=== PATIENT | female | born 1995 | race American Indian/Alaskan Native ===

== ENCOUNTER 2018-08-01 17:27 | Emergency (ER) | payer BC, OTHER ==
--- NOTE | 2018-08-01 18:54 | Emergency Department Report ---
Blank Doc - Documentation Documentation: 22 y o female presents to ED with right ankle pain pain x 1 month. cc of right Achilles tendon pain and swelling no numbness or tingling, weakness, or recent injury Exam: swelling and tenderness to achilles tendon area, limited ROM 2/2 pain PlaN: XR fast track eval
--- NOTE | 2018-08-01 20:01 | XRay Report ---
FINAL REPORT EXAM: XR ANKLE 2V RT HISTORY: posterior ankle swelling and pain TECHNIQUE: 2 views right ankle PRIORS: None. FINDINGS: No fracture is identified. No dislocation seen. Ankle mortise is intact no evidence of joint space w idening. No erosive or degenerative changes are identified. No evidence of joint effusion. IMPRESSION: Negative ankle series
--- NOTE | 2018-08-01 23:04 | Emergency Department Report ---
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 denies: numbness - Related Data Previous Rx's Medication Instructions Recorded Last Taken Type Doxylamine Succinate/Vit B6 2 each PO DAILY #30 tablet. 04/29/16 Unknown Rx [Chilo Ervin 10-10 mg Tablet] Cyclobenzaprine [Flexeril] 10 mg PO BID PRN #20 tablet 08/01/18 Unknown Rx Naproxen 500 mg PO BID PRN #30 tablet 08/01/18 Unknown Rx Allergies Allergy/AdvReac Type Severity Reaction Status Date / Time No Known Allergies Allergy Verified 08/01/18 18:49 ED Review of Systems ROS: Stated complaint: RT ANKLE PAIN Other details as noted in HPI Constitutional: denies: chills, fever Eyes: denies: eye pain, eye discharge, vision change ENT: denies: ear pain, throat pain Respiratory: denies: cough, shortness of breath, wheezing Cardiovascular: denies: chest pain, palpitations Endocrine: no symptoms reported Gastrointestinal: denies: abdominal pain, nausea, diarrhea Genitourinary: denies: urgency, dysuria, discharge Musculoskeletal: joint swelling, arthralgia, other (ankle pain swelling ) Skin: denies: rash, lesions Neurological: denies: headache, weakness, paresthesias Psychiatric: denies: anxiety, depression Hematological/Lymphatic: denies: easy bleeding, easy bruising ED Past Medical Hx - Past Medical History Hx Asthma: Yes - Surgical History Past Surgical History?: No - Social History Smoking Status: Never Smoker Substance Use Type: Alcohol - Medications Home Medications: Home Medications Medication Instructions Recorded Confirmed Last Taken Type Doxylamine Succinate/Vit B6 2 each PO DAILY #30 tablet. 04/29/16 Unknown Rx [Chilo Dr 10-10 mg Tablet] Cyclobenzaprine [Flexeril] 10 mg PO BID PRN #20 tablet 08/01/18 Unknown Rx Naproxen 500 mg PO BID PRN #30 tablet 08/01/18 Unknown Rx ED Physical Exam - General Limitations: No Limitations General appearance: alert, in no apparent distress - Head Head exam: Present: atraumatic, normocephalic - Eye Eye exam: Present: normal appearance - ENT ENT exam: Present: mucous membranes moist - Neck Neck exam: Present: normal inspection - Respiratory Respiratory exam: Present: normal lung sounds bilaterally. Absent: respiratory distress, wheezes - Cardiovascular Cardiovascular Exam: Present: regular rate, normal rhythm, normal heart sounds. Absent: systolic murmur, diastolic murmur, rubs, gallop - GI/Abdominal GI/Abdominal exam: Present: soft, normal bowel sounds - Rectal Rectal exam: Present: deferred - Extremities Exam Extremities exam: Present: normal inspection, tenderness, normal capillary refill, joint swelling (right ankle ). Absent: calf tenderness - Expanded Lower Extremity Exam Right Ankle exam: Present: full ROM, tenderness, swelling. Absent: abrasion, laceration, ecchymosis, deformity, crepidus, dislocation, erythema, anterior draw sign Foot/Toe exam: Present: normal inspection, full ROM. Absent: tenderness Neuro vascular tendon exam: Present: no vascular compromise. Absent: motor deficit, sensory deficit, tendon deficit Gait: Positive: observed and limited by pain - Back Exam Back exam: Present: normal inspection, full ROM. Absent: tenderness, CVA tenderness (R), CVA tenderness (L), muscle spasm, paraspinal tenderness - Neurological Exam Neurological exam: Present: alert, oriented X3, CN II-XII intact, normal gait, motor sensory deficit, reflexes normal - Psychiatric Psychiatric exam: Present: normal affect, normal mood - Skin Skin exam: Present: warm, dry, intact, normal color. Absent: rash ED Course Vital Signs 08/01/18 17:39 Temperature 98.7 F Pulse Rate 79 Respiratory 16 Rate Blood Pressure 126/79 [Left] O2 Sat by Pulse 100 Oximetry ED Lower Extremity MDM - EKG Data Interpretation: unchanged when compared t (final with her vomiting rate is regular) - Radiology Data Radiology results: report reviewed, image reviewed FINAL REPORT EXAM: XR ANKLE 2V RT HISTORY: posterior ankle swelling and pain TECHNIQUE: 2 views right ankle PRIORS: None. FINDINGS: No fracture is identified. No dislocation seen. Ankle mortise is intact no evidence of joint space widening. No erosive or degenerative changes are identified. No evidence of joint effusion. IMPRESSION: Negative ankle series Transcribed By: TAMANNA Dictated By: KRYSTYNA VARELA MD Electronically Authenticated By: KRYSTYNA VARELA MD Signed Date/Time: 08/01/182000 DD/ 58 TD/TT: 08/01/181958 - Medical Decision Making this is ankle pain and swelling no fracture on xray no soft tissue abnormality pain with rotation pt is partial weight bearing there has been no significant injury plan: crutches continue current low wrap therapy, follow up with orthopedics in 2-3 days. pt verbalized agreement and understanding of same. Critical care attestation.: If time is entered above; I have spent that time in minutes in the direct care of this critically ill patient, excluding procedure time. ED Disposition Clinical Impression: Ankle sprain Qualifiers: Encounter type: initial encounter Involved ligament of ankle: unspecified ligament Laterality: right Qualified Code(s): S93.401A - Sprain of unspecified ligament of right ankle, initial encounter Ankle pain Qualifiers: Chronicity: acute Laterality: right Qualified Code(s): M25.571 - Pain in right ankle and joints of right foot Disposition: TO HOME OR SELFCARE Is pt being admited?: No Does the pt Need Aspirin: No Condition: Stable Prescriptions: Cyclobenzaprine [Flexeril] 10 mg PO BID PRN #20 tablet PRN Reason: Muscle Spasm Naproxen 500 mg PO BID PRN #30 tablet PRN Reason: pain Referrals: KRISTI DAMIAN MD [Staff Physician] - 3-5 Days Forms: Work/School Release Form(ED) Time of Disposition: 23:15
[2018-08-01 23:45] VITALS: BP 115/82
== END 2018-08-01 23:44 | disposition home or self-care (01) ==
LOC: ED 17:27
DX: S93.401A Sprain of unspecified ligament of right ankle, initial encounter (principal); J45.909 Unspecified asthma, uncomplicated; X50.1XXA Overexertion from prolonged static or awkward postures, initial encounter; Y93.89 Activity, other specified; Y92.69 Other specified industrial and construction area as the place of occurrence of the external cause; Y99.8 Other external cause status
CPT/HCPCS: 99283

== ENCOUNTER 2019-03-10 16:48 | Emergency (ER) | payer BC, OTHER ==
[2019-03-10 17:54] VITALS: BP 136/68
--- NOTE | 2019-03-10 17:56 | Event Note ---
ED Screening Note Date of service: 03/10/19 Time: 17:51 ED Screening Note: This is a 23 y.o. F. that presents to the ER with nausea, vomiting, and diarrhea. Patient states she took 2 test, 1 positive and 1 negative. This initial assessment/diagnostic orders/clinical plan/treatment(s) is/are subject to change based on patients health status, clinical progression and re- assessment by fellow clinical providers in the ED. Further treatment and workup at subsequent clinical providers discretion. Patient/guardian urged not to elope from the ED as their condition may be serious if not clinically assessed and managed. Initial orders include: UA and hcg
[2019-03-10 18:38] LABS: Bilirubin,Urine NEG (Negative); Blood,Urine NEG (Negative); Color,Urine Yellow (Yellow); Mucus,Urine 3+ /HPF; Protein,Urine <15 mg/dL mg/dL (Negative); Urobilinogen,Urine < 2.0 mg/dL (<2.0)
[2019-03-10 18:41] LABS: HCG Qualitative,Urine Negative (Negative)
--- NOTE | 2019-03-10 21:04 | Emergency Department Report ---
ED General Adult HPI - General Chief complaint: Nausea/Vomiting/Diarrhea Stated complaint: ABD PAIN/NAUSEA Time Seen by Provider: 03/10/19 17:51 Source: patient Mode of arrival: Ambulatory Limitations: No Limitations - History of Present Illness Initial comments: 23-year-old obese [place] female with a On control in her arm presents with department seeking a test to ensure that she is not . States took a home test and it was negative and also she took one that had a what she feels is a faint line so following the family. She did a repeat test also was negative. States for to confirm she wanted to come to the ED to make sure test was negative. She reports no nausea, vomiting, no fevers or chills. Radiation: non-radiation Improves with: none Worsens with: none Associated Symptoms: denies other symptoms Treatments Prior to Arrival: none - Related Data Previous Rx's Medication Instructions Recorded Last Taken Type Doxylamine Succinate/Vit B6 2 each PO DAILY #30 tablet. 04/29/16 Unknown Rx [Chilo Ervin 10-10 mg Tablet] Cyclobenzaprine [Flexeril] 10 mg PO BID PRN #20 tablet 08/01/18 Unknown Rx Naproxen 500 mg PO BID PRN #30 tablet 08/01/18 Unknown Rx Allergies Allergy/AdvReac Type Severity Reaction Status Date / Time No Known Allergies Allergy Verified 03/10/19 17:50 ED Review of Systems ROS: Stated complaint: ABD PAIN/NAUSEA Other details as noted in HPI Comment: All other systems reviewed and negative ED Past Medical Hx - Past Medical History Hx Asthma: Yes - Surgical History Additional Surgical History: x1 - Social History Smoking Status: Current Every Day Smoker Substance Use Type: Alcohol - Medications Home Medications: Home Medications Medication Instructions Recorded Confirmed Last Taken Type Doxylamine Succinate/Vit B6 2 each PO DAILY #30 tablet. 04/29/16 Unknown Rx [Chilo Ervin 10-10 mg Tablet] Cyclobenzaprine [Flexeril] 10 mg PO BID PRN #20 tablet 08/01/18 Unknown Rx Naproxen 500 mg PO BID PRN #30 tablet 08/01/18 Unknown Rx ED Physical Exam - General Limitations: No Limitations General appearance: alert, in no apparent distress - Head Head exam: Present: atraumatic, normocephalic - Eye Eye exam: Present: normal appearance - ENT ENT exam: Present: mucous membranes moist - Neck Neck exam: Present: normal inspection - Respiratory Respiratory exam: Present: normal lung sounds bilaterally. Absent: respiratory distress - Cardiovascular Cardiovascular Exam: Present: regular rate, normal rhythm. Absent: systolic murmur, diastolic murmur, rubs, gallop - GI/Abdominal GI/Abdominal exam: Present: soft, normal bowel sounds - Extremities Exam Extremities exam: Present: normal inspection - Back Exam Back exam: Present: normal inspection - Neurological Exam Neurological exam: Present: alert, oriented X3 - Psychiatric Psychiatric exam: Present: normal affect, normal mood - Skin Skin exam: Present: warm, dry, intact, normal color. Absent: rash ED Course Vital Signs 03/10/19 17:51 Temperature 98.9 F Pulse Rate 84 Respiratory 16 Rate Blood Pressure 136/68 O2 Sat by Pulse 98 Oximetry Critical care attestation.: If time is entered above; I have spent that time in minutes in the direct care of this critically ill patient, excluding procedure time. ED Disposition Clinical Impression: Negative test Disposition: - TO HOME OR SELFCARE Is pt being admited?: No Does the pt Need Aspirin: No Condition: Stable Instructions: Normal Exam (ED) Referrals: CARLOS RENAE MD [Primary Care Provider] - 3-5 Days
== END 2019-03-10 21:03 | disposition home or self-care (01) ==
LOC: ED 16:48
DX: R55 Syncope and collapse (principal); J45.909 Unspecified asthma, uncomplicated; F17.200 Nicotine dependence, unspecified, uncomplicated
CPT/HCPCS: 81001; 81025

== ENCOUNTER 2019-05-05 21:58 | Emergency (ER) | payer BC, OTHER ==
[2019-05-05 22:43] LABS: Basophils # (Auto) 0.1 K/mm3 (0.0-0.1); Basophils % (Auto) 1.2 % (0.0-1.8); Eosinophils # (Auto) 0.5 K/mm3 (0.0-0.4); Eosinophils % (Auto) 4.7 % (0.0-4.3); Hematocrit 39.4 % (30.3-42.9); Hemoglobin 13.9 gm/dl (10.1-14.3); Lymphocytes # (Auto) 2.6 K/mm3 (1.2-5.4); Lymphocytes % (Auto) 25.8 % (13.4-35.0); Mean Corpuscular HGB Conc 35 % (30-34); Mean Corpuscular Volume 86 fl (79-97); Monocytes # (Auto) 0.7 K/mm3 (0.0-0.8); Monocytes % (Auto) 7.3 % (0.0-7.3); Platelet Count 349 K/mm3 (140-440); Red Blood Count 4.59 M/mm3 (3.65-5.03); Red Cell Distribution Width 13.4 % (13.2-15.2)
[2019-05-05 23:05] LABS: Alanine Aminotransferase 11 units/L (7-56); Albumin 4.4 g/dL (3.9-5); BUN/Creatinine Ratio 18; Blood Urea Nitrogen 11 mg/dL (7-17); Calcium 9.2 mg/dL (8.4-10.2); Hemolysis Index 12
[2019-05-05 23:19] LABS: Amorphous Crystals,Urine Few; Bilirubin,Urine NEG (Negative); Blood,Urine NEG (Negative); Color,Urine Yellow (Yellow); Mucus,Urine 3+ /HPF
--- NOTE | 2019-05-05 23:58 | Emergency Department Report ---
ED Abdominal Pain HPI - General Chief Complaint: Abdominal Pain Stated Complaint: ABD PAIN POSSIBLY Time Seen by Provider: 05/05/19 23:01 Source: patient Mode of arrival: Ambulatory Limitations: No Limitations - History of Present Illness Initial Comments: Pt is a 23 y/o aaf who presents for bilat lowe abdominal pain radiating to superpubic x 1 weeks, states she took home test with faint positive result. pt denies vaginal bleeding no vaginal discharge, denies dysuria, frequency, or urgency. there is no n/v no back pain no n/v pt states hemturia x 1 today. MD Complaint: abdominal pain Onset/Timin -: week(s) Location: suprapubic Radiation: suprapubic Migration to: no migration Severity: moderate Severity scale (0 -10): 5 Quality: aching Consistency: constant Improves With: nothing Worsens With: nothing Associated Symptoms: denies: nausea, vomiting, diarrhea, fever, chills, constipation, dysuria - Related Data LMP Date: 04/04/19 Previous Rx's Medication Instructions Recorded Last Taken Type Doxylamine Succinate/Vit B6 2 each PO DAILY #30 tablet. 04/29/16 Unknown Rx [Diclegis Dr 10-10 mg Tablet] Cyclobenzaprine [Flexeril] 10 mg PO BID PRN #20 tablet 08/01/18 Unknown Rx Naproxen 500 mg PO BID PRN #30 tablet 08/01/18 Unknown Rx Ibuprofen [Motrin 800 MG tab] 800 mg PO Q8HR PRN #30 tablet 05/06/19 Unknown Rx Nitrofurantoin Ellis/M-Cryst 100 mg PO BID 7 Days #14 capsule 05/06/19 Unknown Rx [Macrobid CAP] Allergies Allergy/AdvReac Type Severity Reaction Status Date / Time No Known Allergies Allergy Verified 03/10/19 17:50 ED Review of Systems ROS: Stated complaint: ABD PAIN POSSIBLY Other details as noted in HPI Constitutional: denies: chills, fever Eyes: denies: eye pain, eye discharge, vision change ENT: denies: ear pain, throat pain Respiratory: denies: cough, shortness of breath, wheezing Cardiovascular: denies: chest pain, palpitations Endocrine: no symptoms reported Gastrointestinal: abdominal pain. denies: nausea, vomiting, diarrhea Genitourinary: hematuria. denies: urgency, dysuria, frequency, discharge, dyspareunia Musculoskeletal: denies: back pain, joint swelling, arthralgia Skin: denies: rash, lesions Neurological: denies: headache, weakness, paresthesias Psychiatric: as per HPI Hematological/Lymphatic: denies: easy bleeding, easy bruising ED Past Medical Hx - Past Medical History Previous Medical History?: Yes Hx Asthma: Yes Additional medical history: eczema - Surgical History Past Surgical History?: Yes Additional Surgical History: x1 - Social History Smoking Status: Former Smoker Substance Use Type: Alcohol - Medications Home Medications: Home Medications Medication Instructions Recorded Confirmed Last Taken Type Doxylamine Succinate/Vit B6 2 each PO DAILY #30 tablet. 04/29/16 Unknown Rx [Diclegis Dr 10-10 mg Tablet] Cyclobenzaprine [Flexeril] 10 mg PO BID PRN #20 tablet 08/01/18 Unknown Rx Naproxen 500 mg PO BID PRN #30 tablet 08/01/18 Unknown Rx Ibuprofen [Motrin 800 MG tab] 800 mg PO Q8HR PRN #30 tablet 05/06/19 Unknown Rx Nitrofurantoin Ellis/M-Cryst 100 mg PO BID 7 Days #14 capsule 05/06/19 Unknown Rx [Macrobid CAP] ED Physical Exam - General Limitations: No Limitations General appearance: alert, in no apparent distress - Head Head exam: Present: atraumatic, normocephalic - Eye Eye exam: Present: normal appearance - ENT ENT exam: Present: mucous membranes moist - Neck Neck exam: Present: normal inspection - Respiratory Respiratory exam: Present: normal lung sounds bilaterally. Absent: respiratory distress - Cardiovascular Cardiovascular Exam: Present: regular rate, normal rhythm. Absent: systolic murmur, diastolic murmur, rubs, gallop - GI/Abdominal GI/Abdominal exam: Present: soft, normal bowel sounds. Absent: distended, tenderness, guarding, rebound, rigid, bruit, hernia - Rectal Rectal exam: Present: deferred - Extremities Exam Extremities exam: Present: normal inspection, full ROM. Absent: tenderness - Back Exam Back exam: Present: normal inspection, full ROM. Absent: tenderness, CVA tend erness (R), CVA tenderness (L), vertebral tenderness - Neurological Exam Neurological exam: Present: alert, oriented X3 - Psychiatric Psychiatric exam: Present: normal affect, normal mood - Skin Skin exam: Present: warm, dry, intact, normal color. Absent: rash ED Course Vital Signs 05/05/19 22:06 Temperature 98.4 F Pulse Rate 68 Respiratory 18 Rate Blood Pressure 132/78 O2 Sat by Pulse 98 Oximetry ED Medical Decision Making - Lab Data Result diagrams: 05/05/19 22:23 05/05/19 22:23 Labs 05/05/19 05/05/19 05/05/19 22:23 22:23 22:23 WBC 10.0 RBC 4.59 Hgb 13.9 Hct 39.4 MCV 86 MCH 30 MCHC 35 H RDW 13.4 Plt Count 349 Lymph % (Auto) 25.8 Ellis % (Auto) 7.3 Eos % (Auto) 4.7 H Baso % (Auto) 1.2 Lymph # 2.6 Ellis # 0.7 Eos # 0.5 H Baso # 0.1 Seg Neutrophils % 61.0 Seg Neutrophils # 6.1 Sodium 143 Potassium 3.7 Chloride 103.1 Carbon Dioxide 27 Anion Gap 17 BUN 11 Creatinine 0.6 L Estimated GFR > 60 BUN/Creatinine Ratio 18 Glucose 84 Calcium 9.2 Total Bilirubin 0.30 AST 15 ALT 11 Alkaline Phosphatase 102 Total Protein 8.1 Albumin 4.4 Albumin/Globulin Ratio 1.2 HCG, Qual Urine Color Yellow Urine Turbidity Slightly-cloudy Urine pH 7.0 Ur Specific [place]isle 1.023 Urine Protein 30 mg/dl Urine Glucose (UA) Neg Urine Ketones Neg Urine Blood Neg Urine Nitrite Neg Urine Bilirubin Neg Urine Urobilinogen 2.0 Ur Leukocyte Esterase Mod Urine WBC (Auto) 85.0 H Urine RBC (Auto) 8.0 U Epithel Cells (Auto) 2.0 Amorphous Crystals Few Urine Mucus 3+ 05/05/19 22:23 WBC RBC Hgb Hct MCV MCH MCHC RDW Plt Count Lymph % (Auto) Ellis % (Auto) Eos % (Auto) Baso % (Auto) Lymph # Ellis # Eos # Baso # Seg Neutrophils % Seg Neutrophils # Sodium Potassium Chloride Carbon Dioxide Anion Gap BUN Creatinine Estimated GFR BUN/Creatinine Ratio Glucose Calcium Total Bilirubin AST ALT Alkaline Phosphatase Total Protein Albumin Albumin/Globulin Ratio HCG, Qual Negative Urine Color Urine Turbidity Urine pH Ur Specific [place] Urine Protein Urine Glucose (UA) Urine Ketones Urine Blood Urine Nitrite Urine Bilirubin Urine Urobilinogen Ur Leukocyte Esterase Urine WBC (Auto) Urine RBC (Auto) U Epithel Cells (Auto) Amorphous Crystals Urine Mucus - Medical Decision Making pt advised no abdominal pain at this time, there is no fever or chills, no n/v, no dysuria frquency or urgency, hematuria with x 1 episod only pt is now voiding without problem, ua: pos for leuk, wbc, bacteria, hcg: neg, plan tx for uti with macrobid, follow up with pcp in 2-3 days, pt verbalized agreement and uderstanding of discharge plan. Critical care attestation.: If time is entered above; I have spent that time in minutes in the direct care of this critically ill patient, excluding procedure time. ED Disposition Clinical Impression: UTI (urinary tract infection) Qualifiers: Urinary tract infection type: acute cystitis Hematuria presence: without hematuria Qualified Code(s): N30.00 - Acute cystitis without hematuria Disposition: TO HOME OR SELFCARE Is pt being admited?: No Does the pt Need Aspirin: No Condition: Stable Instructions: Urinary Tract Infection in Women (ED) Prescriptions: Nitrofurantoin Ellis/M-Cryst [Macrobid CAP] 100 mg PO BID 7 Days #14 capsule Ibuprofen [Motrin 800 MG tab] 800 mg PO Q8HR PRN #30 tablet PRN Reason: pain Referrals: [facility] [Outside] - 3-5 Days [facility] [Provider Group] - 3-5 Days Forms: Work/School Release Form(ED) Time of Disposition: 00:07
[2019-05-06 00:24] VITALS: BP 128/84
== END 2019-05-06 00:20 | disposition home or self-care (01) ==
LOC: ED 21:58
DX: N39.0 Urinary tract infection, site not specified (principal); J45.909 Unspecified asthma, uncomplicated; Z98.890 Other specified postprocedural states; Z79.1 Long term (current) use of non-steroidal anti-inflammatories (NSAID); Z79.899 Other long term (current) drug therapy; Z87.891 Personal history of nicotine dependence
CPT/HCPCS: 36415; 80053; 81001; 84703; 85025; 87086